=== PATIENT | male | born 1970 | race Caucasian/White ===

== ENCOUNTER → 2022-01-09 11:23 | Outpatient (BNVA) | payer OTHER, SELFPAY | PROVIDERS: Visit Provider Student in an Organized Health Care Education/Training Program | DX: S62.612A Displaced fracture of proximal phalanx of right middle finger, initial encounter for closed fracture (principal); W01.0XXA Fall on same level from slipping, tripping and stumbling without subsequent striking against object, initial encounter; Y99.0 Civilian activity done for income or pay | CPT/HCPCS: 73130 ==

== ENCOUNTER → 2022-01-23 14:19 | Outpatient (BNVA) | payer OTHER, SELFPAY | PROVIDERS: Visit Provider Student in an Organized Health Care Education/Training Program | DX: X58.XXXA Exposure to other specified factors, initial encounter (principal); S62.612A Displaced fracture of proximal phalanx of right middle finger, initial encounter for closed fracture | CPT/HCPCS: 73130 ==

== ENCOUNTER 2024-08-16 14:42 | Emergency (ER) | payer MEDICAID, SELFPAY ==
[2024-08-16 14:53] VITALS: BP 123/83; PULSE 88; RESP 20; TEMP 36.4; O2SAT 93
--- NOTE | 2024-08-16 15:18 | ED_ITS ---
HPI - Neuro Symptoms/Deficit General: Chief Complaint: Neuro Symptoms/Deficit Stated Complaint: dizzy/weak Time Seen by Provider: 08/16/24 15:15 History of Present Illness: 54-year-old male who presents to the [facility] room for headaches. He has longstanding migraine headaches but he also was recently found to have a Chiari I follow-up formation he has some dizziness and nausea. He is scheduled to be seen by a neurologist. He reports he had an MRI at [place] that showed a 7 mm Displacement of cerebral tonsils below the formic foramen magnum per the 's report. He does take rizatriptan for his headaches with some relief. He is scheduled to see neurology in [place] in [place] in November. Associated symptoms: Deny chest pain Related Data Home Medications ?Medication ?Instructions ?Recorded ?Confirmed amitriptyline 10 mg tablet 10 mg PO BEDTIME 08/16/24 0 08/16/24 azelastine 137 mcg (0.1 %) nasal 1 spray intranasal BI D 08/16/24 08/16/24 spray fluticasone propionate 50 1 spray intranasal BID use w ith 08/16/24 08/16/24 mcg/actuation nasal Azelastine spray,suspension paroxetine HCl 20 mg tablet 20 mg PO BEDTIME 08/16/24 08/16/24 rizatriptan 5 mg disintegrating See Rx Instructions .R oute .COMPLEX 08/16/24 08/16/24 tablet tamsulosin 0.4 mg capsule 0.8 mg PO DAILY 08/16/2410/05 Allergies Allergy/AdvReac Type Severity Reaction Status Date / Time acetaminophen Allergy Mild Unconscious Verified 01/23/22 14:20 ibuprofen Allergy Mild Unknown Verified 01/23/22 14:20 naproxen Allergy Mild Unknown Verified 01/23/22 14:20 Review of Systems Const: Denies: fever(s) or chills Card: Denies: chest pain Resp: Denies: dyspnea GI: Denies: abdominal pain : Denies: dysuria, urinary frequency or urinary urgency Musc: Denies: neck pain or back pain Skin/Breast: Denies: rash PFSH ED PFSH: Medical History Fracture of proximal phalanx of right middle finger Social History Smoking and tobacco/nicotine status: current every day tobacco/nicotine user Physical Exam Const: COMMON NORMALS: no acute distress GENERAL APPEARANCE: cooperative and comfortable ORIENTATION/CONSCIOUSNESS: Yes awake, Yes oriented to person, Yes oriented to place and Yes oriented to time HENMT: COMMON NORMALS: normocephalic, atraumatic and hearing grossly normal bilaterally HEAD & SCALP: normocephalic and atraumatic Eye: COMMON NORMALS: Equal, round and reactive pupils present, EOMs intact bilaterally, conjunctivae normal and no scleral icterus CONJUNCTIVA: Yes conjunctivae normal PUPIL: Yes Equal, round and reactive pupils present Resp: COMMON NORMALS: normal respiratory effort, No retractions, No use of accessory muscles and clear to auscultation bilaterally AUSCULTATION: clear to auscultation bilaterally Cardio: COMMON NORMALS: regular rate, regular rhythm and No murmurs present (Cardio) RATE: regular rate RHYTHM: regular rhythm GI: COMMON NORMALS: Soft to palpation and No hepatosplenomegaly present AUSCULTATION: Yes normoactive bowel sounds PALPATION: Yes Soft to palpation, No Tenderness to palpation present (GI), No Guarding due to palpation present (GI) and Yes No hepatosplenomegaly present Extremity: COMMON NORMALS: normal to inspection, capillary refill normal, no clubbing, cyanosis or edema, no calf tenderness and no pedal edema Neuro: SENSORIUM/ORIENTATION: Yes oriented to person, Yes oriented to place and Yes oriented to time Skin: COMMON NORMALS: no rashes or lesions noted GENERAL SKIN EXAM: no rashes or lesions noted Course Vital Signs: Vital signs: Vital Signs Temperature 97.6 F 08/16/24 14:53 Pulse Rate 76 08/16/24 16:38 Respiratory Rate 20 H 08/16/24 14:53 Blood Pressure 130/75 08/16/24 16:38 Pulse Oximetry 100 08/16/24 16:38 MDM - Neuro Symptoms/Deficit Medical Decision Making No signs of acute deficits he is awake and alert no focal neurologic deficits noted nystagmus. CT of the head does not show any acute hydrocephalus. Dr. Vogt read the film and discussed with him he has mild crowding of the foramen magnum but he did not feel it was significant no hydrocephalus normal fourth ventricle we will discharge patient home. Will put in a request for neurology consultation at our neurology clinic. Lab Data Radiology Impressions Head CT 08/16/24 15:24 IMPRESSION: 1. No evidence of intracranial hemorrhage 2. Chiari I malformation with mild crowding at the foramen magnum. 3. No hydrocephalus. Normal fourth ventricle. 4. No acute intracranial findings. All radiology interpretation(s) finalized by discharge Discharge Plan Discharge Patient Disposition: Home Clinical Impression: Arnold-Chiari malformation, type I, Migraines Condition: Stable Prescriptions: No Action tamsulosin 0.4 mg capsule 0.8 mg PO DAILY amitriptyline 10 mg tablet 10 mg PO BEDTIME paroxetine HCl 20 mg tablet 20 mg PO BEDTIME azelastine 137 mcg (0.1 %) spray,non-aerosol 1 spray INTRANASAL BID rizatriptan 5 mg tablet,disintegrating See Rx Instructions .ROUTE .COMPLEX Rx Instructions: Place ONE TABLET INSIDE cheek EVERY TWO hours NEEDED FOR migraine. MAY REPEAT in TWO hours; Max DOSE 30 MG in 24 hours. fluticasone propionate 50 mcg/actuation spray,suspension 1 spray INTRANASAL BID Discharge Orders: Discharge ED (Routine); Ordered 08/16/24 Ordered By: Hardik Duncan Referrals: Sweta Huerta MD [Primary Care Provider, Family Practice] Discharge Diet: Usual diet Discharge Activity: Resume usual activity Patient Instructions: Opioid Safety, Pain Management Activity Restrictions/Additional Instructions: Thank you for choosing [facility] for your healthcare needs today. It is very important that you follow up as instructed or that you return to the Emerg ency Department should you have concerns or if your condition changes or worsens in any way. You were seen in the emergency room with concerns about a headache with a history of Chiari malformation. CT of your head was done and did not show significant abnormality there is no sign of hydrocephalus. At this point recommend that you follow-up with neurology locally to work on headache symptoms. Return if you have further problems. Print Language: Uzbek Coding Level of Care Code ED [employer] Operator for Damian Romo
--- NOTE | 2024-08-16 15:24 | CT_ITS ---
WS: [id number] CT HEAD TECHNIQUE: Noncontrast CT of the head obtained from the skullbase to the vertex. CLINICAL INFORMATION: Headache patient reports history of Chiari malformation DLP: 1113.[address] scans at [facility] use at least one of these dose optimization techniques: automated exposure control; mA and/or kV adjustment per patient size (includes targeted exams where dose is matched to clinical indication); or iterative reconstruction. FINDINGS: No evidence of intracranial hemorrhage. Ventricular system and basal cisterns are patent. Chiari I malformation with the tonsils approximately 7 to 8 mm below the foramen magnum. Mild crowding of the foramen magnum. No extra-axial fluid collections. No hydrocephalus. Normal fourth ventricle. Vascular calcification. Paranasal sinuses and mastoid air cells are well aerated. .Normal visualized soft tissues. CT/CT head wo con* [id number] IMPRESSION: 1. No evidence of intracranial hemorrhage 2. Chiari I malformation with mild crowding at the foramen magnum. 3. No hydrocephalus. Normal fourth ventricle. 4. No acute intracranial findings.
[2024-08-16 16:38] VITALS: BP 130/75; PULSE 76; O2SAT 100
--- NOTE | 2024-08-17 08:15 | DCPLANNER ---
Message sent to Neurology for follow up- No signs of acute deficits he is awake and alert no focal neurologic deficits noted nystagmus. CT of the head does not show any acute hydrocephalus. Dr. Vogt read the film and discussed with him he has mild crowding of the foramen magnum but he did not feel it was significant no hydrocephalus normal fourth ventricle we will discharge patient home. Will put in a request for neurology consultation at our neurology clinic.
== END 2024-08-16 16:39 | disposition home or self-care (01) ==
PROVIDERS: Emergency Provider Family Medicine; PCP Family Medicine
DX: G93.5 Compression of brain (principal); G43.909 Migraine, unspecified, not intractable, without status migrainosus; Z72.0 Tobacco use
CPT/HCPCS: 36415; 70450; 99284

== ENCOUNTER → 2024-12-15 14:57 | Outpatient (BNVA) | payer MEDICAID, SELFPAY | PROVIDERS: PCP Family Medicine; Visit Provider Nurse Practitioner | DX: R51.9 Headache, unspecified (principal); R41.3 Other amnesia | CPT/HCPCS: 36415; 80053; 82607; 82746; 84443; 85025 ==